=== PATIENT | male | born 1970 ===

== ENCOUNTER 2020-10-03 12:00 | Outpatient (CLI) | payer BC ==
--- NOTE | 2020-10-03 12:40 | XRAY Report ---
PROCEDURE: Calcaneus LT INDICATIONS: STRAIN OF LEFT ACHILLES TENDON TECHNIQUE: Two views of the calcaneus were acquired. COMPARISON: None FINDINGS: Bones: No fractures or dislocations. No suspicious bony lesions. Well-defined plantar and dorsal c alcaneal enthesophytes are noted. Soft tissues: No suspicious calcifications. Markedly thickened Achilles tendon is seen concerning fo r tendinosis and partial thickness tear. No definite full-thickness Achilles tendon rupture. IMPRESSION: Well-defined calcaneal enthesophytes with thickened distal Achilles tendon suggestive of Achilles ten dinosis/partial thickness tear. No full-thickness Achilles tendon rupture. Reviewed by: Marcos Post MD on 10/03/2020 12:39 PM PDT Approved by: Marcos Post MD on 10/03/2020 12:39 PM PDT Station ID: [id number]
== END 2020-10-03 12:01 | disposition home or self-care (01) ==
LOC: DI.S 12:00
PROVIDERS: ATTEND Emergency Medicine
DX: S86.012D Strain of left Achilles tendon, subsequent encounter (principal)